=== PATIENT | male | born 1980 | race Two or more races ===

== ENCOUNTER 2016-06-29 09:24 | Emergency (ER) | payer OTHER ==
[2016-06-29] MEDS ORDERED: KETOROLAC TROMETHAMINE 60 MG/2 ML VIAL ONE (10:15)
[2016-06-29] MEDS ORDERED: KETOROLAC TROMETHAMINE 60 MG/2 ML VIAL IM ONE (10:15)
--- NOTE | 2016-06-29 10:15 | Diagnostic Imaging Report ---
[facility] [address] [facility].[address] 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 Persistent pain. Findings: Examination of the left shoulder in multiple views fails to demonstrate evidence of fracture, dislocation or other bone or joint pathology. Electronically signed on Jun 29, 2016 10:04:24 AM SWEATER DESIGNER by: Julian LIU
[2016-06-29 10:28] VITALS: BP 132/68
--- NOTE | 2016-06-29 11:50 | ED Physician Documentation ---
Upper Extremity Problem - HISTORIAN Historian: patient - HPI Stated Complaint: Left Shoulder Injury Chief Complaint: Upper Extremity Problem Location: L shoulder Onset: days ago (3 weeks ago) Timing: still present Recent Injury: Yes Severity: moderate Relieved By: nothing Quality: pain, tenderness - ROS CONST: no problems EYES/ENT: none CVS/RESP: none GI/: none - PAST HX Past History: none Other History: none Allergies/Adverse Reactions: Allergies Allergy/AdvReac Type Severity Reaction Status Date / Time No Known Allergies Allergy Unverified 06/29/16 09:32 Home Medications: Ambulatory Orders Medication Instructions Recorded NK [NK] 06/29/16 - SOCIAL HX Smoking History: cigarettes - FAMILY HX Family History: no significant history - VITAL SIGNS Vital Signs: Vital Signs Temp Pulse Resp BP Pulse Ox 97.3 F L 78 16 132/68 99 06/29/16 09:25 06/29/16 10:26 06/29/16 10:26 06/29/16 10:26 06/29/16 10:26 - REVIEWED ASSESSMENTS Nursing Assessment Reviewed: Yes Vitals Reviewed: Yes ED Results Lab/Radiology - Radiology Radiology Impressions: Left shoulder - three views Clinical history: Injury 3 weeks ago. Persistent pain. Findings: Examination of the left shoulder in multiple views fails to demonstrate evidence of fracture, dislocation or other bone or joint pathology. - Orders Orders: ED Orders Category Date Time Status SHOULDER 2 VIEWS OR MORE [RAD] Stat Exams 06/29/16 Completed Ketorolac Tromethamine [Toradol] Med 06/29/16 10:15 Discontinued 60 mg .ROUTE .STK-MED ONE Ketorolac Tromethamine [Toradol] Med 06/29/16 10:15 Discontinued 60 mg IM NOW ONE Upper Extremity Problem - EXAM General Appearance: no acute distress, alert Shoulder Exam: normal inspection, non-tender, no evidence of injury, normal ROM Elbow/Forearm Exam: normal inspection, non-tender, no evidence of injury, normal ROM CVS: reg rate & rhythm, heart sounds normal, equal pulses, no murmur, no gallop , PMI nml, no JVD, no friction rub, 24 Vascular: no vascular compromise Peripheral: sensation nml, motor nml Central: oriented X3, CN's nml as tested, motor nml, sensation nml, mood/affect nml Respiratory: no resp. distress, breath sounds nml Discharge Clincal Impression: Sprain of shoulder, left Qualifiers: Encounter type: initial encounter Shoulder sprain type: unspecified sprain Qualified Code(s): S43.402A - Unspecified sprain of left shoulder joint, initial encounter Referrals: Kyra Jefferson MD [Primary Care Provider] - 2 Days Home Medications: Ambulatory Orders NK [NK] 06/29/16 Condition: Stable Disposition: HOME, SELF-CARE Decision to Admit: NO Decision Time: 10:15
== END 2016-06-29 10:26 | disposition home or self-care (01) ==
LOC: ED 09:24
DX: S43.402A Unspecified sprain of left shoulder joint, initial encounter (principal); X58.XXXA Exposure to other specified factors, initial encounter; Y93.9 Activity, unspecified; Y99.9 Unspecified external cause status
CPT/HCPCS: 73030; J1885; 96372; 99283

== ENCOUNTER 2017-01-31 15:48 | Outpatient (CLI) | payer OTHER | END 2017-01-31 15:50 | LOC: LAB 15:48 | PROVIDERS: ATTEND Family Medicine | DX: Z20.828 Contact with and (suspected) exposure to other viral communicable diseases (principal) | CPT/HCPCS: 36415; 86694 ==

== ENCOUNTER 2018-11-07 11:01 | Outpatient (CLI) | payer OTHER ==
--- NOTE | 2018-11-07 11:27 | Diagnostic Imaging Report ---
BARRERA MOTT [facility] [address] [facility].[address] [address] Report Submission Date: November 07, 2018 11:21:55 AM CDT Patient Study Name: MADHURI WARD Date: November 07, 2018 11:07:54 AM CDT Modality Type: DX Gender: M Description: CHEST 2VIEW : 76 Institution: [facility] Physician: BARRERA MOTT PA and lateral chest History: Cough PA and lateral chest dated November 07, 2018 demonstrates a region of infiltrate involving the right upper lobe with a mild nodular component. In this patient with a history of cough, these findings are consistent with right upper lobe pneumonia. However, given the small nodular component, follow up radiographs to ensure complete resolution would be recommended. Heart size is normal. There is no pleural effusion. Impression: Abnormal region of infiltrate at the right upper lobe with a mild nodular component. In this patient with cough, these findings are consistent with pneumonia but follow-up radiographs after antibiotic treatment would be recommended to ensure complete resolution especially given the mild nodular component. Electronically signed on November 07, 2018 11:21:55 AM CDT by: Claire LIU
== END 2018-11-07 11:03 ==
LOC: RAD 11:01
PROVIDERS: ATTEND Family Medicine
DX: R91.1 Solitary pulmonary nodule (principal); R05 Cough
CPT/HCPCS: 71046

== ENCOUNTER 2019-03-22 19:30 | Observation (INO) | payer OTHER ==
[2019-03-22] MEDS: 0.9 % SODIUM CHLORIDE 1,000 ML IV ONE (19:55)
--- NOTE | 2019-03-22 20:01 | ED Physician Documentation ---
General Adult - HISTORIAN Historian: patient - HPI Stated Complaint: snake bite Chief Complaint: General Adult Additional Information: Patient presents to ED with snake bite to right foot just prior to arrival. Patient states he was walking across the yard to the shed when he the snake bit him on the 3rd/4th toes on right foot. Patient denies any chest pain, shortness of breath, nausea or vomiting. He has pain at the site of bite. Onset: minutes (10) Timing: still present Severity: moderate - ROS CONST: denies: fever CVS/RESP: denies: chest pain, shortness of breath GI/: denies: vomiting, nausea MS/SKIN/LYMPH: none NEURO/PSYCH: denies: headache - PAST HX Past History: none Other History: none Surgeries/Procedures: none Allergies/Adverse Reactions: Allergies Allergy/AdvReac Type Severity Reaction Status Date / Time No Known Allergies Allergy Unverified 06/29/16 09:32 Home Medications: Ambulatory Orders Medication Instructions Recorded Amoxicillin/Potassium Clav 1 each PO BID #14 tablet 03/22/19 [Augmentin 875-125 Tablet] - SOCIAL HX Smoking History: cigarettes, greater than 1 pack/day Alcohol Use: none Drug Use: none - FAMILY HX Family History: No - VITAL SIGNS Vital Signs: Vital Signs Temp Pulse Resp BP Pulse Ox 132/68 06/29/16 10:26 - REVIEWED ASSESSMENTS Nursing Assessment Reviewed: Yes Vitals Reviewed: Yes Progress - Progress Progress: 2005 Discussed with Poison Control (Erma), recommendations. watch for swelling and significant tissue damage for next 6-12 hours. Will watch for next 1-2 hours for progression. 2141 Discussed with Poison Control (Erma), no new symptoms to report. No swelling, no ecchymosis, no pain. Patient sleeping. Recommendation to monitor for another 2-4 hours. ED Results Lab/Radiology - Lab Results Lab Results: d. dimer 302 INR 1.06 WBC 20.2, Hgb 14.1, Plt 253 CK unable to obtain, machine down. - Orders Orders: ED Orders Category Date Time Status Place IV Lock 1T Care 03/22/19 19:34 Ordered CBC/PLATELET/DIFF Routine Lab 03/22/19 Ordered CKMB Stat Lab 03/22/19 Ordered CMP Routine Lab 03/22/19 Ordered CREATINE KINASE Routine Lab 03/22/19 Ordered D DIMER Stat Lab 03/22/19 Ordered PT-INR Routine Lab 03/22/19 Ordered PTT Routine Lab 03/22/19 Ordered NORMAL SALINE @ 1000 MLS/HR ( 1000ml BOLUS) Med 03/22/19 19:45 Ordered 0.9 % Sodium Chloride [Normal Saline] 1,000 ml IV Q1H EKG WITH COMPARISON Stat Ther 03/22/19 Ordered General Adult Physical Exam - PHYSICAL EXAM GENERAL APPEARANCE: no distress EENT: [place] NECK: supple RESPIRATORY: no resp distress, chest non-tender, breath sounds normal CVS: reg rate & rhythm, heart sounds normal ABDOMEN: soft, normal bowel sounds BACK: normal inspection, no CVA tenderness SKIN: warm/dry, normal color EXTREMITIES: non-tender, no edema, other (3rd toe right foot small puncture, 4th toe right foot small abrasion) NEURO: oriented X3, motor nml, sensation nml, mood/affect nml Discharge Clincal Impression: Bite, snake, venomous Qualifiers: Encounter type: initial encounter Injury intent: accidental or unintentional Qualified Code(s): T63.001A - Toxic effect of unspecified snake venom, accidental (unintentional), initial encounter Comments: Will admit as observation. Await further recommendations from Poison Control. Not recommending anti-venom at this time. Condition: Stable Decision to Admit: NO Date of Decison to Admit: 03/22/19 Decision Time: 21:49
[2019-03-22] MEDS: DIPH,PERTUSS(ACELL),TET VAC/PF 0.5 ML DISP.SYRIN IM ONE (20:20)
[2019-03-22] MEDS: ACETAMINOPHEN 325 MG TABLET PO ONE (20:20)
[2019-03-22] MEDS: HYDROcodone /APAP 5/325 1 EACH TABLET PO ONE (22:14)
[2019-03-22] MEDS ORDERED: ONDANSETRON HCL/PF 4 MG/ 2ML VIAL IVP PRN (22:25)
[2019-03-22] MEDS ORDERED: AMOXICILLIN/POT 875/125 1 EACH PO ONE (22:39)
[2019-03-22] MEDS: AMOXICILLIN/POT 875/125 1 EACH PO ONE (22:47)
[2019-03-22 23:53] VITALS: BMI 24.0
[2019-03-23] MEDS: HYDROcodone /APAP 5/325 1 EACH TABLET PO PRN (04:14)
--- NOTE | 2019-03-23 06:54 | Discharge Summary ---
Discharge Summary - Discharge [facility] Admission Date: 03/22/19 Discharge Date: 03/23/19 Discharge To: Home History of Present Illness: Patient presents to ED with snake bite to right foot just prior to arrival. Patient states he was walking across the yard to the shed when he the snake bit him on the 3rd/4th toes on right foot. Condition at Discharge: Stable Home Medications: Ambulatory Orders Medication Instructions Recorded Amoxicillin/Potassium Clav 1 each PO BID #14 tablet 03/22/19 [Augmentin 875-125 Tablet] Consultations this Visit: None Procedures this Visit: None Allergies/Adverse Reactions: Allergies Allergy/AdvReac Type Severity Reaction Status Date / Time No Known Allergies Allergy Unverified 06/29/16 09:32 Patient Problems: Current Active Problems Problem Status Onset Bite, snake, venomous Acute Discharge Summary: Patient presents to ED with snake bite to right foot just prior to arrival. Patient states he was walking across the yard to the shed when he the snake bit him on the 3rd/4th toes on right foot. Poison control was contacted initially with recommendations of monitoring and observation. Poison control made follow up phone call after 3 hours with recommendations of further monitoring and observation for a total of 12 hours. Patient was admitted for observation. He did require [place] x 2 for pain control. Patient had no progression of symptoms. At time of discharge patient was pain free and had no symptoms. He was instructed to follow up with Dr. Prado within 2 days for recheck. He was sent home on Augmentin and [place]. Hospital Course: general; no distress. HEENT; [place]. CV; RRR. Lungs; CTA. Abd; soft nontender. Ext; no lower extremity edema. Skin; warm, dry
[2019-03-23 07:56] VITALS: BP 145/87
[2019-03-23 09:12] LABS: BASOPHILS % 0.9 % (0.0-1.5); NEUTROPHILS # 13.2 # k/uL (1.4-7.7)
[2019-03-23 09:13] LABS: eGFR (Non-African) > 60
== END 2019-03-23 07:30 | disposition home or self-care (01) ==
LOC: ED 19:30 → SOUTH 22:00
PROVIDERS: ADMIT Physician Assistant Medical; ATTEND Physician Assistant Medical
DX: T63.001A Toxic effect of unspecified snake venom, accidental (unintentional), initial encounter (principal); Y92.007 Garden or yard of unspecified non-institutional (private) residence as the place of occurrence of the external cause; Y93.01 Activity, walking, marching and hiking
CPT/HCPCS: 80053; 82550; 82553; 85025; 85379; 85610; 85730; 90715; 93005; 96361; 96372; 96374; 99282; 99285; A9270-GY; G0378; J7030; S1016